=== PATIENT | male | born 1955 | race American Indian/Alaskan Native ===

== ENCOUNTER 2019-07-30 15:26 | Emergency (ER) | payer MEDICARE ==
[2019-07-30 15:43] VITALS: BP 135/65
--- NOTE | 2019-07-30 15:46 | Emergency Department Report ---
Chief Complaint: Extremity Injury, Lower Stated Complaint: BACK/PAIN BOTH LEGS Time Seen by Provider: 07/30/19 15:38 - HPI History of Present Illness: This is a 64-year-old male nontoxic, well in appearance with no signs of distress presents to the ED for Percocet refill. Patient stated is a chroninc pain. Denies any new pain. 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 Denies any new symptoms. Patient denies any urinary symptoms. Patient denies any fever, chills, headache, nausea, vomiting, chest pain or shortness of breathe. denies any other symptoms or complaints. - Exam Physical Exam: normal physical exam. no cellulitis. no abscess. no swelling. MSE screening note: Focused history and physical exam performed. Due to findings the following was ordered: ED Medical Decision Making - Medical Decision Making [facility] shows that patient has been prescribed 50 Percocets on 07/11/2019 which means that patient should has enough for today. Patient was instructed to Follow-up with a primary care doctor in 3-5 days or if symptoms worsen and continue return to emergency room as soon as possible. At time of discharge, the patient does not seem toxic or ill in appearance. No acute signs of distress noted. Patient agrees to discharge treatment plan of care. No further questions noted by the patient. ED Disposition for MSE Clinical Impression: Chronic pain Qualifiers: Chronic pain type: other chronic pain Qualified Code(s): G89.29 - Other chronic pain Opioid dependence Qualifiers: Substance use status: with unspecified opioid-induced disorder Qualified Code(s): F11.29 - Opioid dependence with unspecified opioid-induced disorder Disposition: -01 TO HOME OR SELFCARE Is pt being admited?: No Does the pt Need Aspirin: No Condition: Stable Instructions: Opioid Dependence (ED) Additional Instructions: Follow-up with a primary care doctor in 3-5 days or if symptoms worsen and continue return to emergency room as soon as possible. Referrals: PRIMARY MD BHAVIK [Referring] - 3-5 Days NIKO HODGES MD [Staff Physician] - 3-5 Days [facility] [Outside] - 3-5 Days [facility] [Outside] - 3-5 Days
== END 2019-07-30 16:01 | disposition home or self-care (01) ==
LOC: ED 15:26
DX: G89.29 Other chronic pain (principal); M79.605 Pain in left leg; M79.604 Pain in right leg; F11.29 Opioid dependence with unspecified opioid-induced disorder
CPT/HCPCS: 99282